=== PATIENT | female | born 1955 | race Two or more races ===

== ENCOUNTER → 2024-09-14 | Outpatient (CLI) | payer MEDICARE, MEDICAID, SELFPAY ==
--- NOTE | 2024-09-14 | XR_ITS ---
EXAMINATION: Cervical spine, 5 views Technique: Cervical spine AP, AP odontoid, lateral, bilateral obliques, 5 views Exam date and time: September 14, 2024 1427 hours INDICATIONS: Neck pain radiating to the shoulders 8 years FINDINGS: Minimal retrodisplacement C4 relative to C3 No cervical fracture Prominent osteopenia Advanced degenerative disc disease C4-C5, C5-C6, C6-C7 with moderate bilateral neural foraminal stenosis at these levels The odontoid is intact IMPRESSION: Advanced degenerative disc disease C4-C5, C5-C6, C6-C7
== END | disposition home or self-care (01) ==
PROVIDERS: PCP Physician Assistant; Referring Provider Internal Medicine; Visit Provider Internal Medicine
DX: M50.321 Other cervical disc degeneration at C4-C5 level (principal)
CPT/HCPCS: 72050

== ENCOUNTER → 2024-09-19 | Outpatient (CLI) | payer MEDICARE, MEDICAID, SELFPAY ==
--- NOTE | 2024-09-19 13:30 | XR_ITS ---
Examination: Screening digital mammography, bilateral Computer aided detection 3-D breast Tomosynthesis, bilateral Date and time of exam: September 19, 2024 at 1317 hours Compared to mammograms dating to March 09, 2020 Indication: Screening Technique: Nonmagnified MLO, CC views of the breasts to been obtained, reconstructed from 3-D Tomosynthesis images. R2 computer aided detection program utilized for evaluation of suspicious masses and/or abnormal calcifications. 3-D Tomosynthesis images obtained. Findings: The breasts are heterogeneously dense, which may obscure small masses Breast biopsy marker retroareolar region left breast Benign calcifications. No interval suspicious masses Impression: BI-RADS category II: Benign Findings. Recommend 1 year follow-up mammogram.
== END | disposition home or self-care (01) ==
LOC: CDIM 13:09
PROVIDERS: Referring Provider Physician Assistant; Visit Provider Physician Assistant
DX: Z12.31 Encounter for screening mammogram for malignant neoplasm of breast (principal); R92.323 Mammographic fibroglandular density, bilateral breasts; R92.1 Mammographic calcification found on diagnostic imaging of breast
CPT/HCPCS: 77063; 77067

== ENCOUNTER → 2024-09-23 | Outpatient (CLI) | payer MEDICARE, MEDICAID, SELFPAY ==
--- NOTE | 2024-09-23 14:30 | XR_ITS ---
Examination: Pelvic ultrasound, transabdominal, complete Technique: Transabdominal ultrasound of the pelvis performed using grayscale imaging Date and time of exam: September 23, 2024 1345 hours INDICATIONS: Prominent cervix on CT examination pelvis January 25, 2024 FINDINGS: Uterus 6.6 x 3.0 x 4.6 cm No uterine or cervical mass depicted Ovaries obscured by bowel gas Endometrial sign 0.4 cm IMPRESSION: No uterine or cervical mass Consider 6 month follow-up transvaginal pelvic sonography
== END | disposition home or self-care (01) ==
PROVIDERS: PCP Physician Assistant; Referring Provider Physician Assistant; Visit Provider Physician Assistant
DX: N88.4 Hypertrophic elongation of cervix uteri (principal)
CPT/HCPCS: 76856

== ENCOUNTER → 2024-10-14 | Outpatient (CLI) | payer MEDICARE, MEDICAID, SELFPAY ==
[2024-10-14 11:31] LABS: Misc Send Out* See Sep Rpt
[2024-10-14 12:06] LABS: Basophils % (Auto) 0 % (0-2.5); Eosinophils # (Auto) 0.1 Thou/mm3 (0.0-0.5); Eosinophils % (Auto) 2 % (0-10); Hematocrit 37.1 % (36.0-46.0); Hemoglobin 12.5 g/dL (12.0-16.0); Immature Granulocytes % (Auto) 0 % (0-0); Immature Granulocytes Auto 0.01 Thou/mm3 (0.00-0.00); Lymphocytes # (Auto) 1.8 Thou/mm3 (1.0-4.8); Lymphocytes % (Auto) 37 % (10-50); Mean Corpuscular HGB Conc 33.7 g/dl (31.0-37.0); Mean Corpuscular Hemoglobin 30.6 pg (25.0-35.0); Mean Corpuscular Volume 91 fL (80-100); Monocytes # (Auto) 0.4 Thou/mm3 (0.0-0.8); Monocytes % (Auto) 8 % (0-12); Neutrophils # (Auto) 2.6 Thou/mm3 (1.8-7.7); Neutrophils % (Auto) 53 % (37-80); Nucleated Red Blood Cell % 0 /100 WBC (0); Platelet Count 187 Thou/mm3 (140-440); Red Blood Count 4.08 Miln/mm3 (4.00-5.20); White Blood Count 4.9 Thou/mm3 (3.6-11.0)
[2024-10-14 12:22] LABS: Ferritin 18 ng/mL (7.3-270.7)
== END | disposition home or self-care (01) ==
LOC: COPL 11:03
PROVIDERS: PCP Physician Assistant; Referring Provider Internal Medicine Gastroenterology; Visit Provider Internal Medicine Gastroenterology
DX: R10.13 Epigastric pain (principal)
CPT/HCPCS: 36415; 81596; 82728; 85025

== ENCOUNTER → 2024-10-18 | Outpatient (CLI) | payer MEDICARE, MEDICAID, SELFPAY ==
[2024-10-24 06:59] LABS: Helicobacter pylori Ag, Stool* NOT DETECTED (NOT DETECTED)
== END | disposition home or self-care (01) ==
LOC: SLDO 16:19
PROVIDERS: PCP Internal Medicine Gastroenterology; Referring Provider Internal Medicine Gastroenterology; Visit Provider Internal Medicine Gastroenterology
DX: R10.13 Epigastric pain (principal)
CPT/HCPCS: 87338

== ENCOUNTER → 2024-11-09 | Outpatient (CLI) | payer MEDICARE, MEDICAID, SELFPAY ==
--- NOTE | 2024-11-09 | XR_ITS ---
Examination: Cervical spine 3 views Technique: Lateral cervical spine ankle position, standing lateral flexion, standing lateral extension 3 views Exam date and time: 2024 11:44 AM Indications: Neck pain several years. Findings: No cervical fracture. Intact odontoid. Prominent osteopenia. Advanced degenerative disc disease C4-C5, C5-C6, C6-C7 Impression: Advanced degenerative disc disease as above Decreased range of motion between flexion and extension
== END | disposition home or self-care (01) ==
LOC: CDIM 10:44
PROVIDERS: PCP Physician Assistant; Referring Provider Nurse Practitioner; Visit Provider Nurse Practitioner
DX: M50.321 Other cervical disc degeneration at C4-C5 level (principal)
CPT/HCPCS: 72040

== ENCOUNTER → 2024-11-15 | Outpatient (CLI) | payer MEDICARE, MEDICAID, SELFPAY ==
--- NOTE | 2024-11-15 10:00 | XR_ITS ---
Examination: MRI cervical spine without intravenous contrast Date and time of exam: November 15, 2024 1015 hours INDICATIONS: Neck pain radiating to both shoulders 15 years Technique: Multiple axial and sagittal sections of the cervical spine to been obtained. T2 weighted sagittal sections, TR 3, 270, TE 117 T1-weighted sagittal sections, TR 500, TE 11 T1-weighted axial sections, TR 607, TE 12, axial sections TR 18, TE 27 and T2 weighted transverse sections, TR 3920, TE 122. Findings: Adequate alignment cervical vertebral bodies Advanced disc narrowing C4-C5, C5-C6 Diffuse cervical disc desiccation No localized enlargement cervical cord Chronic mild compression C7 C2-C3 no disc protrusion C3-C4 3 mm central subarticular osteophyte disc complex, advanced bilateral neural foraminal stenosis C4-C5 2 mm central subarticular osteophyte disc complex, advanced bilateral neural foraminal stenosis C5-C6 advanced right neural foraminal stenosis C6-C7 moderate bilateral neural foraminal stenosis C7-T1 no disc protrusion IMPRESSION: Advanced degenerative disc disease C4-C5, C5-C6 Advanced bilateral neural foraminal stenosis C3-C4, C4-C5 C5-C6 advanced right neural foraminal stenosis
== END | disposition home or self-care (01) ==
PROVIDERS: PCP Nurse Practitioner; Referring Provider Nurse Practitioner; Visit Provider Nurse Practitioner
DX: M50.321 Other cervical disc degeneration at C4-C5 level (principal); M48.02 Spinal stenosis, cervical region
CPT/HCPCS: 72141

== ENCOUNTER 2024-12-15 07:10 | Day surgery (SDC) | payer MEDICARE, MEDICAID, SELFPAY ==
[2024-12-14 14:26] VITALS: BMI 26.2
[2024-12-15] VITALS (10 sets, daily range): BP systolic 131–171; BP diastolic 69–101; PULSE 66–81; RESP 14–18; TEMP 36.2–36.3; O2SAT 91–100; BMI 25.7
[2024-12-15] MEDS: MIDAZOLAM INJ 1 MG/ML VIAL 2 ML (ASD USE ONLY) 2 MG IV (09:39)
[2024-12-15] MEDS: fentaNYL CIT INJ 50 mCg/ML AMP 2ML (ASD USE ONLY) IV (09:40)
[2024-12-15] MEDS: DiphenhydrAMINE INJ 50 MG/ML VIAL 25 MG IV (09:41)
[2024-12-15] MEDS: RINGERS LACTATED 1000 ML 1,000 ML 20 ML IV (09:45)
[2024-12-15] MEDS: PANTOPRAZOLE INJ 40 MG VIAL 80 MG IV (10:05)
--- NOTE | 2024-12-15 11:15 | SUR.PHASEII ---
1030 Pt more awake and alert. Via medical interpreter, pt denies pain, N/V or difficulty swallowing. Janak PO fluids. Protonix 80mg iv cont to infuse. 1109 Pt assessment unchanged. No complaints,IV protonix infused and 02 weaned off. Pt amb with steady gait. Able to dress self. Pt and significant other given dc instructions, via medical interpreter, [email or web address]. Both state understanding. Pt meets dc criteria-to home.
== END 2024-12-15 11:09 | disposition home or self-care (01) ==
PROVIDERS: PCP Physician Assistant; Referring Provider Internal Medicine Gastroenterology; Visit Provider Internal Medicine Gastroenterology
PROC: (CPT 43239; principal; 2024-12-15 08:30)
DX: K31.7 Polyp of stomach and duodenum (principal); K29.50 Unspecified chronic gastritis without bleeding; K44.9 Diaphragmatic hernia without obstruction or gangrene
CPT/HCPCS: 43251; 43239; A4649; J1200; J2250; J2470; J3010; J7120

== ENCOUNTER → 2025-01-06 | Outpatient (CLI) | payer MEDICARE, MEDICAID, SELFPAY ==
[2025-01-02 15:41] LABS: Anion Gap 6 (7-16); BUN/Creatinine Ratio 29 Ratio (12-20); Blood Urea Nitrogen 23 mg/dL (9-23); Calcium 8.8 mg/dL (8.3-10.6); Carbon Dioxide 28.1 mMol/L (20.0-31.0); Chloride 108 mMol/L (98-107); Creatinine (Component) 0.8 mg/dL (0.6-1.3); Glucose 110 mg/dL (74-106); Osmolality,Calculated 287 (275-295); Sodium 142 mMol/L (136-145); eGFR > 60 See Note
--- NOTE | 2025-01-06 10:00 | XR_ITS ---
Examination: CT abdomen with intravenous contrast CT pelvis with intravenous contrast 2-D coronal reconstructions 2-D sagittal reconstructions Date and time of exam:January 06, 2025 at 1028 hours Comparison January 25, 2024 INDICATIONS: Abnormal liver function studies on laboratory examination one week ago with upper abdominal pain, enlarged common bile duct [address] abdomen pelvis January 25, 2024. CTDI: vol (mGy) 16.7 DLP: (mGycm) 520 Technique: Multiple axial sections of the abdomen and pelvis have been obtained. 64 slice high-resolution scanner used. 3 mm axial sections have been obtained, post intravenous injection 60 cc [id number] 2-D sagittal, coronal reconstructions obtained. Low dose protocols were performed. One or more of the following dose reduction techniques were used; automated exposure control, adjustment of the mA and/or KV according to patient size, use of iterative reconstruction technique. Findings: No focal liver or splenic lesions No gallstones Common hepatic duct 12 mm No pancreatic mass No renal or ureteral calculi, no hydronephrosis Moderate stool throughout the colon No pericecal inflammatory change Anteverted uterus No pelvic mass Moderate osteopenia IMPRESSION: Enlarged common hepatic duct 12 mm, consider hepatobiliary sonography follow-up
== END | disposition home or self-care (01) ==
LOC: SCAT 09:30
PROVIDERS: PCP Physician Assistant; Referring Provider Internal Medicine Gastroenterology; Visit Provider Internal Medicine Gastroenterology
DX: K83.8 Other specified diseases of biliary tract (principal); R94.5 Abnormal results of liver function studies
CPT/HCPCS: 36415; 74177; 80048; A4649; Q9967

== ENCOUNTER → 2025-03-10 | Outpatient (CLI) | payer MEDICARE, MEDICAID, SELFPAY ==
--- NOTE | 2025-03-10 13:30 | XR_ITS ---
Examination: Abdomen sonogram, complete Date and time of exam: March 10, 2025 1340 hours INDICATIONS: Mid abdominal pain beginning several years ago. Technique: Multiple real-time grayscale transabdominal sonographic images of the abdomen have been obtained. Findings: Absent gallbladder Common bile duct 1.1 cm no stones Pancreatic head 1.3 cm Aorta not enlarged. Liver 12.5 cm fatty infiltration Normal hepatopedal portal venous flow Patent IVC Right kidney 9.6 cm renal cortex 0.9 cm Left kidney 11.7 cm cortex 1.1 cm Mild bilateral renal parenchymal scar formation 8mm left renal cyst Spleen 9.2 cm IMPRESSION: Absent gallbladder No common bile duct stones Fatty infiltration throughout the liver
== END | disposition home or self-care (01) ==
PROVIDERS: PCP Physician Assistant; Referring Provider Internal Medicine Gastroenterology; Visit Provider Internal Medicine Gastroenterology
DX: K76.0 Fatty (change of) liver, not elsewhere classified (principal); Z90.49 Acquired absence of other specified parts of digestive tract
CPT/HCPCS: 76700

== ENCOUNTER 2025-06-23 15:10 | Emergency (ER) | payer MEDICARE, MEDICAID, SELFPAY ==
[2025-06-23 15:11] VITALS: BMI 25.6
[2025-06-23 15:30] VITALS: BP 119/76; PULSE 65; RESP 16; TEMP 36.8; O2SAT 98
[2025-06-23] MEDS: ONDANSETRON ODT 4 MG TABRAP PO (15:40)
[2025-06-23] MEDS: MG HYD/AL HYD/SIME (Maalox Reg) SUSP 30 ML UDC PO (15:41)
--- NOTE | 2025-06-23 15:59 | XR_ITS ---
Examination: CT abdomen and pelvis without contrast. Coronal 3-D reconstructions. Sagittal 2-D reconstructions. Date and time of exam: June 23, 2025, 1613 hours, comparison January 06, 2025 INDICATIONS: Onset epigastric pain left-sided abdominal pain beginning 3 days ago CTDI: vol (mGy): 6.64 DLP: (mGycm): 376 Technique: Axial images of the abdomen have been obtained, 3 mm slice thickness Intravenous contrast material has not been administered. Low dose protocols were performed. One or more of the following dose reduction techniques were used; automated exposure control, adjustment of the mA and/or KV according to patient size, use of iterative reconstruction technique. Findings: No focal liver or splenic lesions Absent gallbladder, enlarged common hepatic duct 16 mm, enlarged common bile duct 12 mm No pancreatic or adrenal mass No renal or ureteral calculi Aorta normal size 12 mm fat-containing umbilical hernia No bowel obstruction or diverticulitis Anteverted uterus No pericecal inflammatory change Grade 1 anterolisthesis L4 on L5 IMPRESSION: Enlarged common hepatic duct 16 mm common bile duct 12 mm Consider MRCP follow-up to exclude common bile duct stones and/or stricture
--- NOTE | 2025-06-23 15:59 | PD.EDRME ---
Rapid Medical Screening Exam RME Arrival date/time: 06/23/25 15:10 Chief Complaint: Nausea/Vomiting/Diarrhea Time Seen by Provider: 06/23/25 15:21 Vital signs: Vital Signs Temperature 98.2 F 06/23/25 15:30 Pulse Rate 65 06/23/25 15:30 Respiratory Rate 16 06/23/25 15:30 Blood Pressure 119/76 06/23/25 15:30 Pulse Oximetry (%) 98 06/23/25 15:30 Oxygen Delivery Method Room Air 06/23/25 15:30
[2025-06-23 16:11] LABS: Basophils # (Auto) 0.0 Thou/mm3 (0.0-0.2); Basophils % (Auto) 0 % (0-2.5); Eosinophils # (Auto) 0.0 Thou/mm3 (0.0-0.5); Eosinophils % (Auto) 1 % (0-10); Hematocrit 38.7 % (36.0-46.0); Hemoglobin 12.9 g/dL (12.0-16.0); Immature Granulocytes Auto 0.01 Thou/mm3 (0.00-0.00); Lymphocytes # (Auto) 0.9 Thou/mm3 (1.0-4.8); Lymphocytes % (Auto) 22 % (10-50); Mean Corpuscular HGB Conc 33.3 g/dl (31.0-37.0); Mean Corpuscular Hemoglobin 30.6 pg (25.0-35.0); Mean Corpuscular Volume 92 fL (80-100); Monocytes # (Auto) 0.2 Thou/mm3 (0.0-0.8); Monocytes % (Auto) 5 % (0-12); Neutrophils # (Auto) 3.0 Thou/mm3 (1.8-7.7); Neutrophils % (Auto) 72 % (37-80); Nucleated Red Blood Cell # 0.00 Thou/mm3 (0.00-0.00); Nucleated Red Blood Cell % 0 /100 WBC (0); Platelet Count 188 Thou/mm3 (140-440); RDW Standard Deviation 41.1 fL (36.4-46.3); Red Blood Count 4.21 Miln/mm3 (4.00-5.20); White Blood Count 4.1 Thou/mm3 (3.6-11.0)
[2025-06-23 16:21] LABS: Collection Type, Urine Clean Catch
[2025-06-23 16:34] LABS: Alanine Aminotransferase 25 U/L (10-49); Albumin, Serum 4.5 gm/dL (3.4-4.8); Albumin/Globulin Ratio 2.0 (1.2-2.2); Alkaline Phosphatase 172 U/L (46-116); Anion Gap 11 (7-16); Aspartate Amino Transferase 33 U/L (0-34); BUN/Creatinine Ratio 16 Ratio (12-20); Bilirubin,Total 0.5 mg/dL (0.3-1.2); Blood Urea Nitrogen 11 mg/dL (9-23); Calcium 8.9 mg/dL (8.3-10.6); Calcium (Corrected) 8.9 mg/dL (8.5-10.1); Carbon Dioxide 23.7 mMol/L (20.0-31.0); Chloride 106 mMol/L (98-107); Creatinine (Component) 0.7 mg/dL (0.6-1.3); Estimated Creatinine Clearance 66.4 mL/min (>60); Globulin 2.3 gm/dL (2.3-3.5); Glucose 109 mg/dL (74-106); Lipase 26 U/L (12-53); Osmolality,Calculated 281 (275-295); Potassium 3.9 mMol/L (3.4-5.1); Sodium 141 mMol/L (136-145); Total Protein 6.8 gm/dL (5.7-8.2); eGFR > 60 See Note
[2025-06-23 16:41] LABS: Bilirubin,Urine Negative (Negative); Blood,Urine Negative (Negative); Clarity,Urine Clear (Clear/Hazy); Color,Urine Yellow (Lt Yel-Yel); Glucose, Urine Negative (Negative); Ketones,Urine 3+ (Negative); Leukocyte Esterase,Urine Negative (Negative); Nitrite,Urine Negative (Negative); PH,Urine 7.0 (5.0-7.0); Protein,Urine 1+ (Neg - Trace); RBC,Urine 8 /hpf (0-3); Specific Gravity,Urine 1.038 (1.001-1.035); Squamous Epithelial Cell,Urine 1 /hpf (0-5); Urobilinogen,Urine Negative mg/dL (0.0-1.0); WBC,Urine < 1 /hpf (0-5)
--- NOTE | 2025-06-23 17:28 | EDNOTE_ITS ---
ED Abdominal Pain RME/HPI General Chief Complaint: Nausea/Vomiting/Diarrhea Stated complaint: LLQ ABD PAIN, DIARRHEA, N/V X3 DAYS Time seen by provider: 06/23/25 15:21 Arrival date/time: 06/23/25 15:10 70-year-old female with no known medical history presents to the emergency room with a chief complaint of left lower quadrant abdominal pain nausea vomiting x 3 days Source: patient Mode of arrival: ambulatory Limitations: no limitations RME / HPI RME / HPI narrative: 06/23/25 15:10 Related Data Home Medications ?Medication ?Instructions ?Recorded ?Confirmed methimazole 10 mg tablet 5 mg PO QDAY 05/19/18 omeprazole 20 mg tablet,delayed 40 mg PO QDAY 05/19/18 12/15/24 release Allergies Allergy/AdvReac Type Severity Reaction Status Date / Time latex Allergy Mild Rash Verified 06/23/25 15:13 Review of Systems Review of Systems Systems Reviewed: All systems reviewed, normal except as documented Constitutional Constitutional: Reports system reviewed and no additional complaints, except as documented, Denies fatigue, Denies fever(s), Denies headache(s) and Denies weakness Eyes Eyes: Reports system reviewed and no additional complaints, except as documented, Denies blurry vision and Denies change in vision ENT Ears, Nose, Mouth, and Throat: Reports system reviewed and no additional complaints, except as documented, Denies otalgia, Denies headache(s), Denies nasal congestion, Denies throat swelling and Denies vertigo Cardiovascular Cardiovascular: Reports system reviewed and no additional complaints, except as documented, Denies chest pain, Denies dyspnea and Denies dyspnea on exertion Respiratory Respiratory: Reports system reviewed and no additional complaints, except as documented, Denies chest congestion, Denies cough, Denies dyspnea, Denies dyspnea on exertion and Denies wheezing Gastrointestinal Gastrointestinal: Reports system reviewed and no additional complaints, except as documented, Reports abdominal pain, Denies cramping, Reports nausea and Reports vomiting Genitourinary Genitourinary: Reports system reviewed and no additional complaints, except as documented Musculoskeletal Musculoskeletal: Reports system reviewed and no additional complaints, except as documented and Denies back pain Integumentary/Breasts Skin/Breast: Reports system reviewed and no additional complaints, except as documented and Denies wounds Neurologic Neurologic: Reports system reviewed and no additional complaints, except as documented, Denies confusion, Denies headache(s), Denies lack of coordination, Denies vertigo and Denies weakness Psychiatric Psychiatric: Reports system reviewed and no additional complaints, except as documented, Denies anxiety, Denies confusion, Denies depression, Denies paranoia, Denies suicidal ideation and Denies tactile hallucinations Endocrine Endocrine: Reports system reviewed and no additional complaints, except as documented and Denies fatigue Hematologic/Lymphatic Hematologic/Lymphatic: Reports system reviewed and no additional complaints, except as documented and Denies lymphadenopathy Allergic/Immunologic Allergic/Immunologic: Reports system reviewed and no additional complaints, except as documented, Denies throat swelling, Denies urticaria and Denies wheezing Past Medical History Past Medical History NEUROLOGIC: Negative Neurological Disorders or Seizures CARDIAC: Negative Cardiac Disorders or Congestive Heart Failure RESPIRATORY: Positive Asthma; Negative Chronic Obstructive Pulmonary Disease (COPD) GASTROINTESTINAL: Positive Gastrointestinal Disorders (gastritis), Gall Bladder Disease, Ulcer and Gastroesophageal Reflux Disease GENITOURINARY: Negative Genitourinary Disorders or Renal Disease MUSCULOSKELETAL: Positive Musculoskeletal Disorders (neck pain) and Arthritis ENT: Positive Cataracts ENDOCRINE: Positive Endocrine Disorders, Hyperthyroidism and Hypothyroidism; Negative Diabetes Mellitus Type 1 or Diabetes Mellitus Type 2 HEMATOLOGIC: Negative Blood Disorders or Sickle Cell Disease PSYCHO/SOCIAL: Positive Depression OTHER HISTORY: Negative Autoimmune Disease, Blood Transfusions, Blood Transfusion Reaction, Anesthesia Reactions or Cancer Family History FAMILY HISTORY: Positive Family Surgery; Negative Family Psychiatric Problems, Family Respiratory Disorders, Family Cardiac Disorders, Family Gastrointestinal Problems, Family Cancer or Family Anesthesia Reaction Surgical History SURGICAL: Positive Lumpectomy Social History SMOKING STATUS: Never smoker ED Exam General Limitations: Present no limitations General appearance: Present alert and in no apparent distress Head Head exam: Present atraumatic Eye Eye exam: Present normal appearance, PERRL and EOMI ENT ENT exam: Present normal exam, normal oropharynx and mucous membranes moist Neck Neck exam: Present normal inspection, full ROM and trachea midline Chest Chest inspection: Present normal inspection and symmetric chest wall rise Respiratory Respiratory exam: Present normal lung sounds bilaterally Cardiovascular Cardiovascular exam: Present regular rate, normal rhythm and normal heart sounds Abdominal Exam Abdominal exam: Present soft, tenderness and normal bowel sounds Abdominal tenderness: Present mild Extremities Exam Extremities exam: Present normal inspection and full ROM Back Exam Back exam: Present normal inspection and full ROM Neurological Exam Neurological exam: Present alert, oriented X3 and CN II-XII intact Psychiatric Psychiatric exam: Present normal affect and normal mood Skin Skin exam: Present warm, dry, intact and normal color Course Quality Measures none Orders Category Date Time Status CT abdomen pelvis wo con Stat Exams 06/23/25 15:59 Completed CBC Stat Lab 06/23/25 16:00 Completed CMP [Comprehensive Metabolic Panel] Stat Lab 06/23/25 16:00 Completed Lipase Stat Lab 06/23/25 16:00 Completed UA [Urinalysis] Stat Lab 06/23/25 16:03 Completed Urine Culture Stat Lab 06/23/25 16:03 Received Ketorolac Inj [Toradol Inj] Med 06/23/25 17:27 Discontinued 30 mg IVP X1 ONE Ondansetron Inj [Zofran Inj] Med 06/23/25 17:27 Discontinued 4 mg IVP X1 ONE Ondansetron Odt [Zofran Odt] Med 06/23/25 15:33 Discontinued 4 mg PO X1 ONE Sodium Chloride 0.9% 1000 ml [Ns] 1,000 ml Med 06/23/25 17:28 Active IV 999 mls/hr mg Hyd/Al Hyd/Kyler Susp [Maalox Susp] Med 06/23/25 15:33 Discontinued 30 ml PO X1 ONE Vital Signs Vital signs: Vital Signs Temperature 98.2 F 06/23/25 15:30 Pulse Rate 65 06/23/25 15:30 Respiratory Rate 16 06/23/25 15:30 Blood Pressure 119/76 06/23/25 15:30 Pulse Oximetry (%) 98 06/23/25 15:30 Oxygen Delivery Method Room Air 06/23/25 15:30 Abdominal Pain MDM MDM Narrative MDM Narrative:: 70-year-old female with no known medical history presents to the emergency room with a chief complaint of left lower quadrant abdominal pain nausea vomiting x 3 days Patient is hemodynamically stable and in no apparent distress Physical examination shows tenderness and pain to the patient's epigastric area of her abdomen. The patient is also complaining of left lower quadrant abdominal pain and is having some vomiting. Patient is afebrile CBC CMP were negative for any acute findings. There is no liver enzyme elevation bilirubin is within normal limits CT of the abdomen and pelvis was completed and shows an enlarged common bile duct at 12 mm. Patient has a history of a cholecystectomy and normal liver enzymes. I spoke spoke to Dr. Alva one of my attending physicians and her recommendation was to talk to the patient and ask him to return tomorrow in the morning for an MRCP as her MRCP machine right now is closed. The patient agrees to the plan and does not want to stay overnight. The patient was given strict return precautions and educated to return to the emergency room for any evidence of worsening signs or symptoms. The patient was educated on the consequences of not returning for an MRCP tomorrow morning as this could lead to worsening pain, worsening outcomes, Patient was discharged and educated to follow-up with primary care provider in the next 24 to 48 hours and return to the emergency room for any evidence of worsening signs or symptoms Patient data External records reviewed:: [facility] previous records Clinical information provided by:: patient Social determinants that could affect healthcare access:: none Patient has the following chronic illnesses:: No chronic illness How is presenting disease/condition affected by chronic disease/condition?: no chronic disease Evaluation data The following diagnostics were reviewed and interpreted by me:: lab results and radiology exam(s) Lab and/or radiology exams considered but not ordered:: Labs and radiology exams considered and ordered Interpretation Summary: CT abdomen and pelvis-Findings: No focal liver or splenic lesions Absent gallbladder, enlarged common hepatic duct 16 mm, enlarged common bile duct 12 mm No pancreatic or adrenal mass No renal or ureteral calculi Aorta normal size 12 mm fat-containing umbilical hernia No bowel obstruction or diverticulitis Anteverted uterus No pericecal inflammatory change Grade 1 anterolisthesis L4 on L5 IMPRESSION: Enlarged common hepatic duct 16 mm common bile duct 12 mm Consider MRCP follow-up to exclude common bile duct stones and/or stricture Medications / Prescriptions Medications or Prescriptions considered but not ordered:: Medication given Medication administrations:: Medication Administration History Sodium Chloride (Ns) 1,000 mls @ 999 mls/hr IV .Q1H1M ONE Stop: 06/23/25 18:28 Discontinued Medications Al Hydrox/Mg Hydrox/Simethicone (Mg Hyd/Al Hyd/Kyler (Maalox Reg) Susp 30 Ml Udc) 30 ml PO X1 ONE Stop: 06/23/25 15:34 Last Admin: 06/23/25 15:41 Dose: 30 ml Documented By: TRISTA Ketorolac Tromethamine (Ketorolac Inj 30 Mg/Ml Vial) 30 mg IVP X1 ONE Stop: 06/23/25 17:28 Ondansetron HCl (Ondansetron Odt 4 Mg Tabrap) 4 mg PO X1 ONE; Protocol Stop: 06/23/25 15:34 Last Admin: 06/23/25 15:40 Dose: 4 mg Documented By: TRISTA Ondansetron HCl (Ondansetron Inj 2 Mg/Ml Inj 2 Ml) 4 mg IVP X1 ONE; Protocol Stop: 06/23/25 17:28 Medication given Consultations Consultation(s) initiated? (list below): No Diagnosis Differential diagnosis abdominal pain: abdominal pain, acute appendicitis, gastroenteritis and other (Common bile duct dilation) Most likely diagnosis given after review of the tests above:: Common bile duct dilation Admission Indicated Admission indicated?: not indicated Admission Request Was there a request for admission?: No Disposition Plan Disposition Plan: Discharge Discharge Attestation Discharge Attestation: The patient and all family members were given an opportunity to ask questions and understood the discharge instructions. Discharge instructions specifically effects, indications for sooner follow up or return to the emergency department, and the expected course of current diagnosis. Patient condition: Stable Discharge Plan Plan Patient Disposition: HOME (Self Care) Discharge Disposition comment: Stable Prescriptions/Referrals Prescriptions/Med Rec: No Action methimazole 10 mg Tablet 5 mg PO QDAY omeprazole 20 mg Tablet,Delayed Release (Dr/Ec) 40 mg PO QDAY Problem List Clinical Impression: Nausea & vomiting, Common bile duct dilation Patient/Caregiver Discharge Instructions Education Materials: ED Vomiting and Diarrhea ... Additional Instructions: Por favor, consulte con quintero m?dico de cabecera en las pr?ximas 24 a 48 horas. Se realiz? mika tomograf?a computarizada de abdomen y pelvis que mostr? un agrandamiento del conducto biliar com?n. Tiene antecedentes de colecistectom?a. Shawanda enzimas hep?effie se encuentran dentro de los l?mites normales y shawanda s?ntomas wong fransisco. En harlan momento, quintero resonancia magn?terese est? cerrada. Por favor, regrese a urgencias ma?murphy por la ma?murphy para mika colangiopancreatograf?a por resonancia magn?terese (CPRM) para evaluar el conducto biliar com?n y descartar cualquier obstrucci?n. Si observa cualquier signo de empeoramiento de los signos o s?ntomas, regrese a urgencias de inmediato. Print Language: Mohawk Stand Alone Forms: Es Award Info., Work/School Release, Patient Portal Info Letter
[2025-06-23] MEDS: SODIUM CHLORIDE 0.9% 1000 ML 1,000 ML 999 ML IV (17:50)
[2025-06-23] MEDS: ONDANSETRON INJ 2 MG/ML INJ 2 ML 4 MG IVP (18:06)
[2025-06-23] MEDS: KETOROLAC INJ 30 MG/ML VIAL IVP (18:07)
== END 2025-06-23 18:51 | disposition home or self-care (01) ==
PROVIDERS: Nurse Practitioner Family; Emergency Provider Family Medicine
DX: K83.8 Other specified diseases of biliary tract (principal); K42.9 Umbilical hernia without obstruction or gangrene; M43.16 Spondylolisthesis, lumbar region
CPT/HCPCS: 36415; 74176; 80053; 81001; 83690; 85025; 87086; 96361; 96374; 96375; 99283; J1885; J2405; J7030; Q0162; A9270

== ENCOUNTER 2025-06-24 07:39 | Emergency (ER) | payer MEDICARE, MEDICAID, SELFPAY ==
--- NOTE | 2025-06-24 | XR_ITS ---
MRI abdomen, without contrast. MRCP Date and time of exam: June 24, 2025, 1027 hours INDICATIONS: Abdominal pain this week, enlarged common hepatic common bile duct on CT examination yesterday Technique: Multiple axial and coronal images of the abdomen have been obtained with the Siemens 1.5T MRI scanner. Images obtained included T1 weighted transverse images, T2-weighted transverse images, T2-weighted transverse images fat-suppressed, T2 weighted haste fat suppressed transverse images, T1 weighted images, in and out of phase images, T2-weighted coronal images, breath hold, T2 weighted haze coronal images as well as T2 weighted coronal thick slab images, MRCP. Findings: Intrahepatic biliary tract dilatation No focal liver lesion Common hepatic duct 15 mm common bile duct 12 mm fairly abrupt termination of the distal common bile duct No stones No pancreatic mass or dilated pancreatic duct No splenomegaly No hydronephrosis Aorta normal size IMPRESSION: Significant extrahepatic biliary tract dilatation with no common hepatic or common bile duct stones noted Recommend ERCP/biopsies follow-up to exclude malignant stricture distal common bile duct
--- NOTE | 2025-06-24 07:57 | PD.EDRME ---
Rapid Medical Screening Exam RME Arrival date/time: 06/24/25 07:39 70-year-old female presents the emerged from today for complaint of abdominal pain patient was instructed return today for MRCP she was found to have a large common bile duct on CT scan yesterday Chief Complaint: General Adult/Misc Complain Vital signs reviewed by provider: Yes Exam: On exam patient with mild tenderness of the abdomen Lungs clear to auscultation Normal neurological exam Clinical Impression: Lab work and imaging obtained
[2025-06-24 07:59] VITALS: BP 138/72; PULSE 67; RESP 16; TEMP 36.7; O2SAT 97; BMI 25.6
[2025-06-24 08:48] LABS: Basophils # (Auto) 0.0 Thou/mm3 (0.0-0.2); Basophils % (Auto) 0 % (0-2.5); Eosinophils # (Auto) 0.1 Thou/mm3 (0.0-0.5); Eosinophils % (Auto) 2 % (0-10); Hematocrit 38.6 % (36.0-46.0); Hemoglobin 12.7 g/dL (12.0-16.0); Immature Granulocytes Auto 0.01 Thou/mm3 (0.00-0.00); Lymphocytes # (Auto) 1.1 Thou/mm3 (1.0-4.8); Lymphocytes % (Auto) 30 % (10-50); Mean Corpuscular HGB Conc 32.9 g/dl (31.0-37.0); Mean Corpuscular Hemoglobin 30.9 pg (25.0-35.0); Mean Corpuscular Volume 94 fL (80-100); Monocytes # (Auto) 0.3 Thou/mm3 (0.0-0.8); Monocytes % (Auto) 8 % (0-12); Neutrophils # (Auto) 2.3 Thou/mm3 (1.8-7.7); Neutrophils % (Auto) 59 % (37-80); Nucleated Red Blood Cell # 0.00 Thou/mm3 (0.00-0.00); Nucleated Red Blood Cell % 0 /100 WBC (0); Platelet Count 169 Thou/mm3 (140-440); RDW Standard Deviation 42.0 fL (36.4-46.3); Red Blood Count 4.11 Miln/mm3 (4.00-5.20); White Blood Count 3.8 Thou/mm3 (3.6-11.0)
[2025-06-24 08:54] LABS: Alanine Aminotransferase 22 U/L (10-49); Albumin, Serum 4.3 gm/dL (3.4-4.8); Albumin/Globulin Ratio 2.0 (1.2-2.2); Alkaline Phosphatase 165 U/L (46-116); Anion Gap 11 (7-16); Aspartate Amino Transferase 30 U/L (0-34); BUN/Creatinine Ratio 18 Ratio (12-20); Bilirubin,Total 0.6 mg/dL (0.3-1.2); Blood Urea Nitrogen 14 mg/dL (9-23); Calcium 8.8 mg/dL (8.3-10.6); Calcium (Corrected) 8.8 mg/dL (8.5-10.1); Carbon Dioxide 25.1 mMol/L (20.0-31.0); Chloride 109 mMol/L (98-107); Creatinine (Component) 0.8 mg/dL (0.6-1.3); Estimated Creatinine Clearance 58.1 mL/min (>60); Globulin 2.1 gm/dL (2.3-3.5); Glucose 93 mg/dL (74-106); Lipase 26 U/L (12-53); Osmolality,Calculated 289 (275-295); Potassium 4.0 mMol/L (3.4-5.1); Sodium 145 mMol/L (136-145); Total Protein 6.4 gm/dL (5.7-8.2); eGFR > 60 See Note
[2025-06-24 12:14] VITALS: BP 141/69; PULSE 70; RESP 22; TEMP 36.8; O2SAT 99
--- NOTE | 2025-06-24 12:56 | PD.EDABDPN ---
ED Abdominal Pain RME/HPI General Chief Complaint: General Adult/Misc Complain Stated complaint: BACK FOR MRI Arrival date/time: 06/24/25 07:39 RME / HPI RME / HPI narrative: 06/24/25 07:39 70-year-old female presents the emerged from today for complaint of abdominal pain patient was instructed return today for MRCP she was found to have a large common bile duct on CT scan yesterday DR. BONDS MAIN ED EVALUATION: 70-year-old female with past medical history of GERD on omeprazole and had EGDs with Dr. Miles which showed gastritis presents to the Emergency Department for abdominal pain; she was seen yesterday for the same complaint and was instructed to return today for an MRCP after her CT scan showed a markedly dilated common bile duct. The patient reports persistent left upper abdominal discomfort since discharge especially after eating. Denies nausea, vomiting, fever, or chills. Related Data Home Medications ?Medication ?Instructions ?Recorded ?Confirmed methimazole 10 mg tablet 5 mg PO QDAY 05/19/18 12/15/24 omeprazole 20 mg tablet,delayed 40 mg PO QDAY 05/19/18 12/15/24 release Previous Rx's ?Medication ?Instructions ?Recorded sucralfate 100 mg/mL oral 10 ml PO QID #200 mL 06/24/25 suspension Allergies Allergy/AdvReac Type Severity Reaction Status Date / Time latex Allergy Mild Rash Verified 06/23/25 15:13 Review of Systems Review of Systems Systems Reviewed: All systems reviewed, normal except as documented Past Medical History Past Medical History RESPIRATORY: Positive Respiratory Disorders (ASTHMA) and Asthma GASTROINTESTINAL: Positive Gastrointestinal Disorders (gastritis), Gall Bladder Disease, Ulcer and Gastroesophageal Reflux Disease MUSCULOSKELETAL: Positive Musculoskeletal Disorders (neck pain) and Arthritis ENT: Positive Cataracts ENDOCRINE: Positive Endocrine Disorders, Hyperthyroidism and Hypothyroidism PSYCHO/SOCIAL: Positive Depression Surgical History SURGICAL: Positive Lumpectomy Social History SMOKING STATUS: Never smoker SUBSTANCE USE: does not use ALCOHOL: Never ED Exam Narrative Physical exam: GENERAL APPEARANCE: alert and oriented x 4, well-developed, well-nourished, no acute distress VITALS: All vitals were reviewed and the pulse ox is 99% on room air, which is normal according to my interpretation. HEENT: Normocephalic, atraumatic; pupils equal, round, reactive to light; EOMI; mucous membranes pink, moist; oropharynx clear NECK: Supple LUNGS: CTABL; no wheezes, no rales, no rhonchi HEART: Regular rate, regular rhythm; normal S1, S2; no murmurs ABDOMEN: non distended; normal BS; soft, no tenderness, no guarding, no rebound; no masses, no organomegaly, no hernia BACK: no CVA tenderness EXTREMITIES: atraumatic; no edema NEUROLOGIC: awake; alert and oriented x4; cranial nerves II-XII grossly intact; no focal sensory or motor deficits PSYCHIATRIC: appropriate mood and affect SKIN: warm, dry, normal color; no rashes Course Quality Measures none Orders Category Date Time Status MRI Screening NOW Care 06/24/25 07:56 Active MR MRCP Stat Exams 06/24/25 Completed CBC Stat Lab 06/24/25 08:18 Completed CMP [Comprehensive Metabolic Panel] Stat Lab 06/24/25 08:18 Completed Lipase Stat Lab 06/24/25 08:18 Completed Vital Signs Vital signs: Vital Signs Temperature 98.1 F 06/24/25 07:59 Pulse Rate 67 06/24/25 07:59 Respiratory Rate 16 06/24/25 07:59 Blood Pressure 138/72 H 06/24/25 07:59 Pulse Oximetry (%) 97 06/24/25 07:59 Oxygen Delivery Method Room Air 06/24/25 07:59 Abdominal Pain MDM MDM Narrative MDM Narrative:: I, Emelia Cerda am scribing for and in the presence of Dr. Bonds. Patient data External records reviewed:: [facility] previous records Clinical information provided by:: patient Social determinants that could affect healthcare access:: none Patient has the following chronic illnesses:: GERD on omeprazole. Had EGDs with Dr. Miles which showed gastritis. How is presenting disease/condition affected by chronic disease/condition?: exacerbated by Evaluation data The following diagnostics were reviewed and interpreted by me:: lab results and radiology exam(s) Lab and/or radiology exams considered but not ordered:: none Interpretation Summary: Procedure(s): MR MRCP Accession Number(s): [id number] cc: Paul (GEORGE),Adin VAZQUEZ; Maribel Chaves; Wiliam Leonard MD~ MRI abdomen, without contrast. MRCP Date and time of exam: June 24, 2025, 1027 hours INDICATIONS: Abdominal pain this week, enlarged common hepatic common bile duct on CT examination yesterday Technique: Multiple axial and coronal images of the abdomen have been obtained with the Siemens 1.5T MRI scanner. Images obtained included T1 weighted transverse images, T2-weighted transverse images, T2-weighted transverse images fat-suppressed, T2 weighted haste fat suppressed transverse images, T1 weighted images, in and out of phase images, T2-weighted coronal images, breath hold, T2 weighted haze coronal images as well as T2 weighted coronal thick slab images, MRCP. Findings: Intrahepatic biliary tract dilatation No focal liver lesion Common hepatic duct 15 mm common bile duct 12 mm fairly abrupt termination of the distal common bile duct No stones No pancreatic mass or dilated pancreatic duct No splenomegaly No hydronephrosis Aorta normal size IMPRESSION: Significant extrahepatic biliary tract dilatation with no common hepatic or common bile duct stones noted Recommend ERCP/biopsies follow-up to exclude malignant stricture distal common bile duct Dictated By: Wiliam Leonard MD Medications / Prescriptions Medications or Prescriptions considered but not ordered:: none Medication administrations:: none Consultations Consultation(s) initiated? (list below): Yes Consultation #1 (Physician, Specialty, Details): Discussed test HPI, PMHx, lab, radiology results and/or management with Dr. Miles. He will follow up with the patient as an outpatient. Patient instructed to call and make an appointment. Time: 12:50 Diagnosis Differential diagnosis abdominal pain: other (Choledocholithiasis, biliary obstruction, and cholangitis.) Most likely diagnosis given after review of the tests above:: Nausea & vomiting Common bile duct dilation Abdominal pain Admission Indicated Admission indicated?: not indicated Admission Request Was there a request for admission?: No Disposition Plan Disposition Plan: Discharge Discharge Attestation Discharge Attestation: The patient and all family members were given an opportunity to ask questions and understood the discharge instructions. Discharge instructions specifically effects, indications for sooner follow up or return to the emergency department, and the expected course of current diagnosis. Patient condition: Stable Discharge Plan Plan Patient Disposition: HOME (Self Care) Prescriptions/Referrals Prescriptions/Med Rec: New sucralfate 100 mg/mL suspension 10 ml PO QID Qty: 200 0RF Rx Instructions: swish in mouth and swallow; use after food/drink No Action methimazole 10 mg Tablet 5 mg PO QDAY omeprazole 20 mg Tablet,Delayed Release (Dr/Ec) 40 mg PO QDAY Referrals: Maribel Chaves [Primary Care Provider] - In 1 week Colton Lopez MD [Physician, Gastroenterology] Problem List Clinical Impression: Nausea & vomiting, Common bile duct dilation, Abdominal pain, Gastritis Patient/Caregiver Discharge Instructions Education Materials: Abdominal Pain Additional Instructions: Follow up with Dr. Lopez for endoscopic ultrasound. Call office for appointment. Print Language: Bruneian Stand Alone Forms: Es Award Info., Patient Portal Info Letter
== END 2025-06-24 14:01 | disposition home or self-care (01) ==
PROVIDERS: Nurse Practitioner Primary Care; Emergency Provider Emergency Medicine; PCP Physician Assistant
DX: K29.70 Gastritis, unspecified, without bleeding (principal)
CPT/HCPCS: 36415; 74181; 80053; 83690; 85025; 99282